=== PATIENT | female | born 1990 | race Caucasian/White ===

== ENCOUNTER 2017-01-29 06:01 | Emergency (ER) | payer MEDICAID ==
[~2017-01-29] VITALS: Ht 157.5 cm; Wt 75.7 kg
[~2017-01-29 06:01] MED LIST: PRENTAB16 PO
[2017-01-29 06:45] VITALS: RESP 18
--- NOTE | 2017-01-29 06:48 | PD ---
HPI Chief Complaint Contractions Date Seen: Jan 29, 2017 Travel History International Travel<30 Days: No Contact w/Intl Traveler<30Days: No History of Present Illness HPI Patient is a 26 year old at 39-2/7 weeks gestation who presents today for contractions. Contractions started around 3:45 this AM and are now occurring every 5-10 minutes. Patient states the contractions have decreased in frequency now. She denies any vaginal bleeding or discharge. No gush or leaking of fluid. Positive movement. care with [facility]. No complications with . History Past Medical History Medical History: Denies Significant Hx Obstetric History Obstetric History Past Surgical History Surgical History: No Previous Surgery Family History Family History: Negative Social History Alcohol Use: No Tobacco Use: No Substance Abuse: No Allergies-Medications (Allergen,Severity, Reaction): Coded Allergies: No Known Allergies (Unverified , 01/22/17) Home Meds Active Scripts Vit W/ Ferrous Fumara ( Complete 14-0.4 mg)1 Tab Tab1 Tab PO DAILY #30 TAB Ref 11 Prov:Cristiano Packer MD R1 06/17/16 Review of Systems Except as stated in HPI: all other systems reviewed are Neg General / Constitutional: No: Fever, Chills Eyes: No: Visual changes HENT: No: Headaches Cardiovascular: No: Chest Pain or Discomfort Respiratory: No: Short of Breath Gastrointestinal: No: Nausea, Abdominal Pain Genitourinary: Pelvic Pain, No: Dysuria, Hematuria, Discharge, Vaginal Bleeding Musculoskeletal: No: Edema Psychiatric: No: Substance Abuse Physical Exam Narrative GENERAL: Well-nourished, well-developed patient. SKIN: Warm and dry. HEAD: Normocephalic and atraumatic. EYES: No scleral icterus. No injection or drainage. ENT: No nasal drainage noted. Mucous membranes pink. Airway patent. NECK: Supple, trachea midline. No JVD. CARDIOVASCULAR: Regular rate and rhythm without murmurs, gallops, or rubs. RESPIRATORY: Breath sounds equal bilaterally. No accessory muscle use. ABDOMEN/GI: Abdomen soft, non-tender, bowel sounds present, no rebound, no guarding Gravid to 39 weeks size GENITOURINARY: External Genitalia: intact and normal in appearance BUS glands: normal Cervix: posterior Dilatation: 3 Effacement: 80 Station: -2 Presentation: vertex Membranes: intact Uterine Contractions: q2-3min FHT's: Category: I Baseline: 122 Reactive: + Variability: moderate Decels: none EXTREMITIES: No cyanosis or edema. BACK: Nontender without obvious deformity. NEUROLOGICAL: Awake and alert. Motor and sensory grossly within normal limits. Normal speech. Data Data Vital Signs Reviewed: Yes MDM Medical Record Reviewed: Yes Narrative Course / MDM 26 year old at 39-2/7 weeks gestation. 1. IUP- Category I tracing, reassuring. 2. Contractions- Consistent contractions on the monitor, will repeat cervical exam in 1 hour to evaluate for active labor. dw Dr. De Luna Addendum: Cervical change to 4cm/80%/-2. Patient no longer feeling contractions, however she continues to have consistent contractions on the monitor and Category I tracing. Because she is a primip, will discharge patient to home. She has a follow-up appointment with [facility] at 11:30. Labor precautions provided. Encouraged to return to ED if she experiences worsening contractions, vaginal bleeding or gush or leaking of fluid. Patient expresses understanding and is agreeable to plan. Diagnosis Diagnosis: Primary Impression: Uterine contractions during Additional Impression: 39 weeks gestation of Disposition: DISCHARGE HOME Condition: Stable Sharee Peguero MD R2 Jan 29, 2017 06:48
[2017-02-13] MEDS ORDERED: CITA10TA4 PO (09:43)
[2017-03-13] MEDS ORDERED: CITA10TA4 PO (09:15)
== END 2017-01-29 08:14 | disposition home or self-care (01) ==
LOC: HOBED 06:01
DX: O47.1 False labor at or after 37 completed weeks of gestation (principal); Z3A.39 39 weeks gestation of pregnancy
CPT/HCPCS: 59025

== ENCOUNTER 2017-01-29 23:23 | Inpatient (IN) | payer MEDICAID ==
[~2017-01-29] VITALS: Ht 157.5 cm; Wt 75.7 kg
[2017-01-30] VITALS (92 sets, daily range): BP systolic 77–132; BP diastolic 29–78; PULSE 76–137; RESP 16–19; TEMP 98.2–98.8; O2SAT 98–100
[2017-01-30] MEDS ORDERED: LACTATED RINGER'S 1000 ML INJ 1,000 ML IV PRN (00:05)
--- NOTE | 2017-01-30 00:13 | HHI.HP ---
History & Physical H&P [facility] OB ED Note (Detail) Patient Name: Shayla Quiñones Unit Number: [id number] Date of : 1990 Patient Status: Registered Emergency Room Attending Doctor: Maddie Hernandez MD HPI HPI Travel History International Travel<30 Days: No Contact w/Intl Traveler<30Days: No Known Affected Area: No History of Present Illness HPI This patient is a 26-year-old 1 para 0 EDC is February 03, 2017 presently at 39 weeks and 3 days she presents with the chief complaint of continued contractions. Patient was seen earlier in the day at which time she was evaluated found to be 3-4 cm dilated contractions were very mild and irregular and she was discharged home patient states that the contractions continued became more regular, no rupture of membranes no vaginal bleeding the baby is active care with Brionna Mejía is course is significant for negative group B strep Presently contractions moderate a 7 on a 10 scale occurring every 5 minutes History (Limited) History Past Medical History Narrative Medical No known drug allergies no major medical problems Obstetric History Obstetric History First Past Surgical History Surgical History: No Previous Surgery Family History Family History: Negative Social History Alcohol Use: No Tobacco Use: No (stopped smoking with ) Substance Abuse: No Allergies-Medications Allergies-Medications (Allergen,Severity, Reaction): Coded Allergies: No Known Allergies (Unverified , 01/29/17) Home Meds Active Scripts Vit W/ Ferrous Fumara ( Complete 14-0.4 mg)1 Tab Tab1 Tab PO DAILY #30 TAB Ref 11 Prov:Cristiano Packer MD R1 06/17/16 ROS Review of Systems Gastrointestinal: Abdominal Pain (contractions every 5 minutes) Physical Exam Physical Exam Narrative GENERAL: Well-nourished, well-developed patient. Alert oriented 3 and cooperative in no acute distress SKIN: Warm and dry. HEAD: Normocephalic and atraumatic. EYES: No scleral icterus. No injection or drainage. Conjunctiva are pink ENT: No nasal drainage noted. Mucous membranes pink. Airway patent. NECK: Supple, trachea midline. No JVD. CARDIOVASCULAR: Regular rate and rhythm without murmurs, gallops, or rubs. RESPIRATORY: Breath sounds equal bilaterally. No accessory muscle use. ABDOMEN/GI: Gravid term estimated weight 7-1/2 pounds Gravid to [-] weeks size term Fundal Height: [-] GENITOURINARY: External Genitalia: intact and normal in appearance BUS glands: [-] Cervix: [-] Midline Dilatation: [-] 4 cm Effacement: [-] 90% effaced Station: [-] -2 station Presentation: [-] Vertex Membranes: [ ruptured] Uterine Contractions: [-] Irregular every 5 minutes FHT's: Category: [-]1 Baseline: [-]140 Reactive: [-]+ Variability: [-] Moderate gfzj-wt-yafz variability Decels: [-]0 EXTREMITIES: No cyanosis or edema. 2+ reflexes NEUROLOGICAL: Awake and alert. Motor and sensory grossly within normal limits. Five out of 5 muscle strength in all muscle groups. Normal speech. Data Data Data Vital Signs Reviewed: Yes (blood pressure 129/71 pulse is 109 she is afebrile) Orders Vital Signs (Adult) .ON ADMISSION (01/30/17 00:04) ^ Labor Status (01/30/17 00:04) Urinalysis - C+S If Indicated (01/30/17 00:04) ^ Hydration (01/30/17 00:04) Admit To Inpatient (01/30/17 ) Code Status (01/30/17 00:05) Vital Signs (Adult) .Per protocol (01/30/17 00:05) Ob (2e) Additional Admit Info (01/30/17 00:07) Heart (01/30/17 00:05) Urinary Catheter Management .ONCE (01/30/17 00:05) Diet Liquid (01/30/17 Breakfast) Lactated Ringer's 1000 Ml Inj (Lr 1000 M (01/30/17 00:05) Lactated Ringer's 1000 Ml Inj (Lr 1000 M (01/30/17 00:05) Sodium Chlorid 0.9% 500 Ml Inj (Ns 500 M (01/30/17 00:15) Sodium Chlor 0.9% 1000 Ml Inj (Ns 1000 M (01/30/17 00:25) Lidocaine 1% Inj (50 Ml) (Xylocaine 1% I (01/30/17 00:15) Citric Acid-Sodium Citrate Liq (Bicitra (01/30/17 00:15) Ondansetron Inj (Zofran Inj) (01/30/17 00:15) Fentanyl Inj (Fentanyl Inj) (01/30/17 00:15) Fentanyl Inj (Fentanyl Inj) (01/30/17 00:15) Complete Blood Count With Diff (01/30/17 00:05) Hold Clot (01/30/17 00:05) Abo/Rh Blood Type (01/30/17 00:05) Resp Oxygen Non Rebreathe Mask (01/30/17 ) ^ Epidural / Intrathecal Infus (01/30/17 00:05) Oxytocin 30 Units-500ml Premix (Pitocin (01/30/17 00:15) Lidocaine 1% Inj (50 Ml) (Xylocaine 1% I (01/30/17 00:15) Light Mineral Oil (Muri-Lube Oil) (01/30/17 00:15) Amnioinfusion (01/30/17 00:05) Labs A positive blood type Group B strep negative MDM MDM Medical Record Reviewed: Yes Interpretation(s) Intrauterine at 39 weeks and 3 days Active labor Group B strep negative Category 1 tracing Plan Admit External monitoring IV fluid hydration CBC type and screen Epidural at patient's request Anticipate vaginal delivery Maddie Hernandez MD Jan 30, 2017 00:13 Maddie Hernandez MD Jan 30, 2017 00:13
[2017-01-30] MEDS ORDERED: CITRIC ACID-SODIUM CITRATE LIQ 30 ML UDC PO SCH ×2 (00:15→13:45)
[2017-01-30] MEDS ORDERED: MINERAL OIL 10 ML VIAL TOPICAL PRN (00:15)
[2017-01-30] MEDS ORDERED: LIDOCAINE HCL 1% 50 ML VIAL I-DERMAL PRN (00:15)
[2017-01-30] MEDS ORDERED: OXYTOCIN 30 UNITS-500ML PREMIX 500 ML IV ONE ×2 (00:15→14:00)
[2017-01-30] MEDS ORDERED: LIDOCAINE HCL 1% 50 ML VIAL INFIL PRN (00:15)
[2017-01-30] MEDS ORDERED: SODIUM CHLORID 0.9% 500 ML INJ 500 ML IV PRN (00:15)
[2017-01-30] MEDS ORDERED: SODIUM CHLOR 0.9% 1000 ML INJ 1,000 ML IV PRN (00:25)
[2017-01-30 00:37] LABS: AUTOMATED NEUTROPHIL # 12.6 TH/MM3 (1.8-7.7); BASOPHIL % 0.1 % (0.0-2.0); HEMATOCRIT 35.7 % (35.0-46.0); HEMO FLAGS DIFF FINAL; LYMPH % 10.4 % (9.0-44.0); LYMPHOCYTE # 1.5 TH/MM3 (1.0-4.8); MEAN CELL VOLUME 85.9 FL (80.0-100.0); MEAN CORPUSCULAR HEMOGLOBIN 28.5 PG (27.0-34.0); MEAN CORPUSCULAR HGB CONC 33.2 % (32.0-36.0); MONO % 5.1 % (0.0-8.0); NEUT % 84.4 % (16.0-70.0); PLATELET COUNT 163 TH/MM3 (150-450); RED BLOOD COUNT 4.15 MIL/MM3 (4.00-5.30); RED CELL DISTRIBUTION WIDTH 13.7 % (11.6-17.2); WHITE BLOOD COUNT 14.9 TH/MM3 (4.0-11.0)
[2017-01-30 00:47] LABS: BACTERIA, URINE RARE /hpf; BLOOD, URINE NEG (NEG); COMMENT (UR) CULT NOT INDICATED; CULTURE IF INDICATED CULT NOT INDICATED; GLUCOSE,URINE NEG (NEG); KETONE, URINE NEG (NEG); NITRITE,URINE NEG (NEG); SQUAMOUS EPITHELIAL CELL URINE 2 /hpf (0-5); URINE COLOR LIGHT-YELLOW (YELLW/STRAW)
[2017-01-30] MEDS: LACTATED RINGER'S 1000 ML INJ 1,000 ML IV SCH ×4 (02:15→10:47)
[2017-01-30] MEDS: ONDANSETRON HCL 4 MG/2 ML VIAL IV PRN ×2 (02:16→18:21)
[2017-01-30] MEDS ORDERED: fentaNYL 2MCG-BUPIV 0.125% INJ 100 ML ONE (04:22)
[2017-01-30] MEDS ORDERED: ePHEDrine/NS 25 MG/5 ML SYR ONE (04:51)
[2017-01-30] MEDS ORDERED: fentaNYL 2MCG-BUPIV 0.125% 100 ML EPIDURAL SCH (06:00)
[2017-01-30] MEDS ORDERED: ePHEDrine/NS 25 MG/5 ML SYR IV PRN (06:00)
[2017-01-30] MEDS ORDERED: DO NOT ADMINISTER ANTICOAGULANTS PRN (06:00)
[2017-01-30] MEDS ORDERED: NO SYSTEM NARCOTICS PRN (06:00)
--- NOTE | 2017-01-30 06:55 | PD.LABORPN ---
Subjective Subjective Patient has gotten an epidural and has rested comfortably during the night. after epidural her bp dropped she received ephedrine x 3 dose to increase the bp Objective Vital Signs Vital Signs Date Time Temp Pulse Resp B/P Pulse Ox O2 Delivery O2 Flow Rate FiO2 01/30/17 06:26 18 01/30/17 06:25 86 01/30/17 06:24 92/52 01/30/17 06:24 87 01/30/17 06:21 84/37 01/30/17 06:21 86 01/30/17 06:20 90 01/30/17 06:16 92 01/30/17 06:16 89/37 01/30/17 06:15 88 01/30/17 06:12 18 01/30/17 06:10 98 01/30/17 06:05 106 01/30/17 06:00 89 01/30/17 06:00 86 95/51 01/30/17 05:48 18 01/30/17 05:25 90 01/30/17 05:21 18 01/30/17 05:20 86 01/30/17 05:20 91 100/57 01/30/17 05:15 93 01/30/17 05:15 94 95/53 01/30/17 05:10 89 01/30/17 05:10 101 101/50 01/30/17 05:06 98.8 01/30/17 05:05 98 01/30/17 05:05 91 98/51 01/30/17 05:03 18 01/30/17 05:00 79 91/54 01/30/17 05:00 100 01/30/17 04:51 137 86/48 01/30/17 04:50 90 01/30/17 04:49 129 84/52 01/30/17 04:49 18 01/30/17 04:45 92 86/42 01/30/17 04:45 91 01/30/17 04:41 137 96/64 01/30/17 04:40 91 01/30/17 04:35 105 01/30/17 04:35 107 117/61 01/30/17 04:31 96 18 114/58 01/30/17 04:30 98 01/30/17 04:22 18 01/30/17 01:36 98.6 01/30/17 00:35 99 18 123/69 01/30/17 00:35 99 18 123/69 Objective Pelvic Exam: Cervix: [-]midline Dilatation: [9-] Effacement: [-] 100% Station: [-] 0 Presentation: [-] vertex Membranes: [ ruptured]scant, clear Uterine Contractions: [-]irregular difficult to strip picker unable to place an IUPC vertex to low FHT's: Category: [-] 1-2 Baseline: [-] 130 Reactive: [-] + accerations up to 170 Variability: [-] mderate Decels: [-] Patient has had an occasional variable however continues to have moderate variability and + accelerations Assessment/Plan Assessment and Plan Labor progression active labor episodes of hypotension related to the epidural Plan: positional change O2 iv fluid hydration anticipate the second stage and subsequent vaginal delivery Maddie Hernandez MD Jan 30, 2017 06:55
--- NOTE | 2017-01-30 06:56 | PD.LABORPN ---
Subjective Subjective Patient resting comfortably with epidural in place. Objective Vital Signs Vital Signs Date Time Temp Pulse Resp B/P Pulse Ox O2 Delivery O2 Flow Rate FiO2 01/30/17 06:26 18 01/30/17 06:25 86 01/30/17 06:24 92/52 01/30/17 06:24 87 01/30/17 06:21 84/37 01/30/17 06:21 86 01/30/17 06:20 90 01/30/17 06:16 92 01/30/17 06:16 89/37 01/30/17 06:15 88 01/30/17 06:12 18 01/30/17 06:10 98 01/30/17 06:05 106 01/30/17 06:00 89 01/30/17 06:00 86 95/51 01/30/17 05:48 18 01/30/17 05:25 90 01/30/17 05:21 18 01/30/17 05:20 86 01/30/17 05:20 91 100/57 01/30/17 05:15 93 01/30/17 05:15 94 95/53 01/30/17 05:10 89 01/30/17 05:10 101 101/50 01/30/17 05:06 98.8 01/30/17 05:05 98 01/30/17 05:05 91 98/51 01/30/17 05:03 18 01/30/17 05:00 79 91/54 01/30/17 05:00 100 01/30/17 04:51 137 86/48 01/30/17 04:50 90 01/30/17 04:49 129 84/52 01/30/17 04:49 18 01/30/17 04:45 92 86/42 01/30/17 04:45 91 01/30/17 04:41 137 96/64 01/30/17 04:40 91 01/30/17 04:35 105 01/30/17 04:35 107 117/61 01/30/17 04:31 96 18 114/58 01/30/17 04:30 98 01/30/17 04:22 18 01/30/17 01:36 98.6 01/30/17 00:35 99 18 123/69 01/30/17 00:35 99 18 123/69 Objective Pelvic Exam: Cervix: midposition Dilatation: 8 Effacement: 100 Station: 0 Presentation: vertex Membranes: ruptured Uterine Contractions: q2-3min FHT's: Category: I Baseline: 140 Reactive: + Variability: moderate Decels: none Assessment/Plan Assessment and Plan 26 year old at 39-3/7 weeks gestation. 1. IUP- Category I tracing, reassuring. 2. Labor progressing with cervical change. 3. Epidural for pain. 4. GBS negative. 5. Anticipate vaginal delivery. dw Dr. Gee, Dr. Miki Lloyd R1, and Concepcion Dunn MS4 Sharee Peguero MD R2 Jan 30, 2017 06:56
--- NOTE | 2017-01-30 08:51 | PD.LABORPN ---
Subjective Subjective Patient resting comfortably in bed with epidural in place. Objective Vital Signs Vital Signs Date Time Temp Pulse Resp B/P Pulse Ox O2 Delivery O2 Flow Rate FiO2 01/30/17 07:55 95 01/30/17 07:50 96 01/30/17 07:45 106 98/54 01/30/17 07:35 98 01/30/17 07:30 95 01/30/17 07:30 17 01/30/17 07:30 99 98/61 01/30/17 07:25 99 01/30/17 07:20 105 01/30/17 07:15 102 114/62 01/30/17 07:15 98.5 01/30/17 07:15 100 01/30/17 07:10 102 01/30/17 07:05 102 01/30/17 07:01 101 119/65 01/30/17 07:00 116 01/30/17 06:57 18 01/30/17 06:55 109 01/30/17 06:50 110 01/30/17 06:45 109 01/30/17 06:45 111 120/63 01/30/17 06:40 104 01/30/17 06:35 100 01/30/17 06:35 125 99/48 01/30/17 06:30 96 91/49 01/30/17 06:30 92 01/30/17 06:26 18 01/30/17 06:25 86 01/30/17 06:24 92/52 01/30/17 06:24 87 01/30/17 06:21 84/37 01/30/17 06:21 86 01/30/17 06:20 90 01/30/17 06:16 92 01/30/17 06:16 89/37 01/30/17 06:15 88 01/30/17 06:12 18 01/30/17 06:10 98 01/30/17 06:05 106 01/30/17 06:00 89 01/30/17 06:00 86 95/51 01/30/17 05:55 82 01/30/17 05:50 85 01/30/17 05:48 18 01/30/17 05:45 89 93/56 01/30/17 05:45 87 01/30/17 05:40 88 01/30/17 05:35 87 01/30/17 05:30 76 01/30/17 05:30 92 96/49 01/30/17 05:25 90 01/30/17 05:21 18 01/30/17 05:20 86 01/30/17 05:20 91 100/57 01/30/17 05:15 93 01/30/17 05:15 94 95/53 01/30/17 05:10 89 01/30/17 05:10 101 101/50 01/30/17 05:06 98.8 01/30/17 05:05 98 01/30/17 05:05 91 98/51 01/30/17 05:03 18 01/30/17 05:00 79 91/54 01/30/17 05:00 100 01/30/17 04:51 137 86/48 01/30/17 04:50 90 01/30/17 04:49 129 84/52 01/30/17 04:49 18 01/30/17 04:45 92 86/42 01/30/17 04:45 91 01/30/17 04:41 137 96/64 01/30/17 04:40 91 01/30/17 04:35 105 01/30/17 04:35 107 117/61 01/30/17 04:31 96 18 114/58 01/30/17 04:30 98 01/30/17 04:22 18 01/30/17 01:36 98.6 Objective Pelvic Exam: Cervix: posterior Dilatation: 10 Effacement: 100 Station: 0 Presentation: vertex Membranes: ruptured Uterine Contractions: q2-3min FHT's: Category: II Baseline: 140 Reactive: + Variability: moderate Decels: intermittent variable decelerations Assessment/Plan Assessment and Plan 26 year old at 39-3/7 weeks gestation. 1. IUP- Category II tracing, IV fluids, position changes, and scalp electrode placed for more accurate heart monitoring. Tracing improved to a Category I tracing after interventions. 2. Labor progressing with cervical change. 3. Epidural for pain. 4. GBS negative. 5. Anticipate vaginal delivery. sdw Dr. Gee, Dr. Miki Lloyd R1, and Concepcion Dunn MS4 Sharee Peguero MD R2 Jan 30, 2017 08:51
--- NOTE | 2017-01-30 09:24 | PD.LABORPN ---
Objective Vital Signs Positional change O2 increase iv fluids bp is low repeated 116/60s presently sitting up monitor closely in the second stage of labor Vital Signs Date Time Temp Pulse Resp B/P Pulse Ox O2 Delivery O2 Flow Rate FiO2 01/30/17 09:00 91 87/42 01/30/17 08:45 87 97/29 01/30/17 08:45 92 01/30/17 08:40 93 01/30/17 08:35 90 01/30/17 08:31 91 78/49 01/30/17 08:30 89 01/30/17 08:25 99 01/30/17 08:20 95 01/30/17 08:15 95 109/76 01/30/17 08:15 91 01/30/17 08:10 93 01/30/17 08:05 95 01/30/17 08:00 93 111/66 01/30/17 08:00 92 01/30/17 07:55 95 01/30/17 07:50 96 01/30/17 07:45 100 01/30/17 07:45 106 98/54 01/30/17 07:35 98 01/30/17 07:30 95 01/30/17 07:30 17 01/30/17 07:30 99 98/61 01/30/17 07:25 99 01/30/17 07:20 105 01/30/17 07:15 102 114/62 01/30/17 07:15 98.5 01/30/17 07:15 100 01/30/17 07:10 102 01/30/17 07:05 102 01/30/17 07:01 101 119/65 01/30/17 07:00 116 01/30/17 06:57 18 01/30/17 06:55 109 01/30/17 06:50 110 01/30/17 06:45 109 01/30/17 06:45 111 120/63 01/30/17 06:40 104 01/30/17 06:35 100 01/30/17 06:35 125 99/48 01/30/17 06:30 96 91/49 01/30/17 06:30 92 01/30/17 06:26 18 01/30/17 06:25 86 01/30/17 06:24 92/52 01/30/17 06:24 87 01/30/17 06:21 84/37 01/30/17 06:21 86 01/30/17 06:20 90 01/30/17 06:16 92 01/30/17 06:16 89/37 01/30/17 06:15 88 01/30/17 06:12 18 01/30/17 06:10 98 01/30/17 06:05 106 01/30/17 06:00 89 01/30/17 06:00 86 95/51 01/30/17 05:55 82 01/30/17 05:50 85 01/30/17 05:48 18 01/30/17 05:45 89 93/56 01/30/17 05:45 87 01/30/17 05:40 88 01/30/17 05:35 87 01/30/17 05:30 76 01/30/17 05:30 92 96/49 01/30/17 05:25 90 01/30/17 05:21 18 01/30/17 05:20 86 01/30/17 05:20 91 100/57 01/30/17 05:15 93 01/30/17 05:15 94 95/53 01/30/17 05:10 89 01/30/17 05:10 101 101/50 01/30/17 05:06 98.8 01/30/17 05:05 98 01/30/17 05:05 91 98/51 01/30/17 05:03 18 01/30/17 05:00 79 91/54 01/30/17 05:00 100 01/30/17 04:51 137 86/48 01/30/17 04:50 90 01/30/17 04:49 129 84/52 01/30/17 04:49 18 01/30/17 04:45 92 86/42 01/30/17 04:45 91 01/30/17 04:41 137 96/64 01/30/17 04:40 91 01/30/17 04:35 105 01/30/17 04:35 107 117/61 01/30/17 04:31 96 18 114/58 01/30/17 04:30 98 01/30/17 04:22 18 01/30/17 01:36 98.6 Objective Pelvic Exam: Cervix: [-] Dilatation: [-] Effacement: [-] Station: [-] Presentation: [-] Membranes: [intact or ruptured] Uterine Contractions: [-] FHT's: Category: [-] Baseline: [-] Reactive: [-] Variability: [-] Decels: [-] Maddie Hernandez MD Jan 30, 2017 09:24
--- NOTE | 2017-01-30 10:07 | PD.LABORPN ---
Subjective Subjective Patient is comfortable feeling pressure when she has a contractions Objective Vital Signs bp has improved IUPC has been placed amnioinfusion going IUPC/FSE in place baseline 140 moderate BTB variability + accelerations with the acoustic stimulator Vital Signs Date Time Temp Pulse Resp B/P Pulse Ox O2 Delivery O2 Flow Rate FiO2 01/30/17 09:15 95 116/64 01/30/17 09:14 88 106/64 01/30/17 09:00 91 87/42 01/30/17 08:45 87 97/29 01/30/17 08:45 92 01/30/17 08:40 93 01/30/17 08:35 90 01/30/17 08:31 91 78/49 01/30/17 08:30 89 01/30/17 08:25 99 01/30/17 08:20 95 01/30/17 08:15 95 109/76 01/30/17 08:15 91 01/30/17 08:10 93 01/30/17 08:05 95 01/30/17 08:00 93 111/66 01/30/17 08:00 92 01/30/17 07:55 95 01/30/17 07:50 96 01/30/17 07:45 100 01/30/17 07:45 106 98/54 01/30/17 07:35 98 01/30/17 07:30 95 01/30/17 07:30 17 01/30/17 07:30 99 98/61 01/30/17 07:25 99 01/30/17 07:20 105 01/30/17 07:15 102 114/62 01/30/17 07:15 98.5 01/30/17 07:15 100 01/30/17 07:10 102 01/30/17 07:05 102 01/30/17 07:01 101 119/65 01/30/17 07:00 116 01/30/17 06:57 18 01/30/17 06:55 109 01/30/17 06:50 110 01/30/17 06:45 109 01/30/17 06:45 111 120/63 01/30/17 06:40 104 01/30/17 06:35 100 01/30/17 06:35 125 99/48 01/30/17 06:30 96 91/49 01/30/17 06:30 92 01/30/17 06:26 18 01/30/17 06:25 86 01/30/17 06:24 92/52 01/30/17 06:24 87 01/30/17 06:21 84/37 01/30/17 06:21 86 01/30/17 06:20 90 01/30/17 06:16 92 01/30/17 06:16 89/37 01/30/17 06:15 88 01/30/17 06:12 18 01/30/17 06:10 98 01/30/17 06:05 106 01/30/17 06:00 89 01/30/17 06:00 86 95/51 01/30/17 05:55 82 01/30/17 05:50 85 01/30/17 05:48 18 01/30/17 05:45 89 93/56 01/30/17 05:45 87 01/30/17 05:40 88 01/30/17 05:35 87 01/30/17 05:30 76 01/30/17 05:30 92 96/49 01/30/17 05:25 90 01/30/17 05:21 18 01/30/17 05:20 86 01/30/17 05:20 91 100/57 01/30/17 05:15 93 01/30/17 05:15 94 95/53 01/30/17 05:10 89 01/30/17 05:10 101 101/50 01/30/17 05:06 98.8 01/30/17 05:05 98 01/30/17 05:05 91 98/51 01/30/17 05:03 18 01/30/17 05:00 79 91/54 01/30/17 05:00 100 01/30/17 04:51 137 86/48 01/30/17 04:50 90 01/30/17 04:49 129 84/52 01/30/17 04:49 18 01/30/17 04:45 92 86/42 01/30/17 04:45 91 01/30/17 04:41 137 96/64 01/30/17 04:40 91 01/30/17 04:35 105 01/30/17 04:35 107 117/61 01/30/17 04:31 96 18 114/58 01/30/17 04:30 98 01/30/17 04:22 18 Objective Pelvic Exam: Cervix: [-] Dilatation: [-] Effacement: [-] Station: [-] Presentation: [-] Membranes: [intact or ruptured] Uterine Contractions: [-] FHT's: Category: [-] Baseline: [-] Reactive: [-] Variability: [-] Decels: [-] Assessment/Plan Assessment and Plan second stage of labor occasional variable decelerations improved with amnioinfusion Plan: shift changing patient signed out to the oncoming MD tracing reviewed agree with close monitoring in the second stage and continued labor Maddie Hernandez MD Jan 30, 2017 10:07
[2017-01-30] MEDS ORDERED: OXYTOCIN 30 UNITS-500ML PREMIX 500 ML IV SCH (10:45)
--- NOTE | 2017-01-30 10:45 | PD.LABORPN ---
Subjective Subjective Patient evaluated at bedside after deceleration of approx 1 min to 60bpm after practice push with the nurse. Resolved after pushing. Patient feeling well. Amnioinfusion going. CTX q2min but inadequate MVUs. Cervix re-examined by Dr. De Luna at bedside and still at 10/100%/0, suggesting ineffective ctx pattern. Decision made to start Pitocin 2-2-30 to help with descent. No pushing. Continue other interventions (IUPC, FSE, amnioinfusion). Continue maternal interventions for decelerations. Continue epidural. If response to Pitocin not optimal, will stop Pitocin. Cat II tracing at this time, will monitor. Discussion of risks, benefits, and indications for CS discussed in detail at bedside if indicated. SDW Dr. De Luna Objective Vital Signs Vital Signs Date Time Temp Pulse Resp B/P Pulse Ox O2 Delivery O2 Flow Rate FiO2 01/30/17 09:15 95 116/64 01/30/17 09:14 88 106/64 01/30/17 09:00 91 87/42 01/30/17 08:45 87 97/29 01/30/17 08:45 92 01/30/17 08:40 93 01/30/17 08:35 90 01/30/17 08:31 91 78/49 01/30/17 08:30 89 01/30/17 08:25 99 01/30/17 08:20 95 01/30/17 08:15 95 109/76 01/30/17 08:15 91 01/30/17 08:10 93 01/30/17 08:05 95 01/30/17 08:00 93 111/66 01/30/17 08:00 92 01/30/17 07:55 95 01/30/17 07:50 96 01/30/17 07:45 100 01/30/17 07:45 106 98/54 01/30/17 07:35 98 01/30/17 07:30 95 01/30/17 07:30 17 01/30/17 07:30 99 98/61 01/30/17 07:25 99 01/30/17 07:20 105 01/30/17 07:15 102 114/62 01/30/17 07:15 98.5 01/30/17 07:15 100 01/30/17 07:10 102 01/30/17 07:05 102 01/30/17 07:01 101 119/65 01/30/17 07:00 116 01/30/17 06:57 18 01/30/17 06:55 109 01/30/17 06:50 110 01/30/17 06:45 109 01/30/17 06:45 111 120/63 01/30/17 06:40 104 01/30/17 06:35 100 01/30/17 06:35 125 99/48 01/30/17 06:30 96 91/49 01/30/17 06:30 92 01/30/17 06:26 18 01/30/17 06:25 86 01/30/17 06:24 92/52 01/30/17 06:24 87 01/30/17 06:21 84/37 01/30/17 06:21 86 01/30/17 06:20 90 01/30/17 06:16 92 01/30/17 06:16 89/37 01/30/17 06:15 88 01/30/17 06:12 18 01/30/17 06:10 98 01/30/17 06:05 106 01/30/17 06:00 89 01/30/17 06:00 86 95/51 01/30/17 05:55 82 01/30/17 05:50 85 01/30/17 05:48 18 01/30/17 05:45 89 93/56 01/30/17 05:45 87 01/30/17 05:40 88 01/30/17 05:35 87 01/30/17 05:30 76 01/30/17 05:30 92 96/49 01/30/17 05:25 90 01/30/17 05:21 18 01/30/17 05:20 86 01/30/17 05:20 91 100/57 01/30/17 05:15 93 01/30/17 05:15 94 95/53 01/30/17 05:10 89 01/30/17 05:10 101 101/50 01/30/17 05:06 98.8 01/30/17 05:05 98 01/30/17 05:05 91 98/51 01/30/17 05:03 18 01/30/17 05:00 79 91/54 01/30/17 05:00 100 01/30/17 04:51 137 86/48 01/30/17 04:50 90 01/30/17 04:49 129 84/52 01/30/17 04:49 18 01/30/17 04:45 92 86/42 01/30/17 04:45 91 01/30/17 04:41 137 96/64 01/30/17 04:40 91 01/30/17 04:35 105 01/30/17 04:35 107 117/61 01/30/17 04:31 96 18 114/58 01/30/17 04:30 98 01/30/17 04:22 18 Objective Pelvic Exam: Cervix: [-] Dilatation: [-] Effacement: [-] Station: [-] Presentation: [-] Membranes: [intact or ruptured] Uterine Contractions: [-] FHT's: Category: [-] Baseline: [-] Reactive: [-] Variability: [-] Decels: [-] Aneta Lloyd MD R1 Jan 30, 2017 10:45
[2017-01-30] MEDS ORDERED: LACTATED RINGER'S 1000 ML INJ 1,000 ML IV ONE (12:11)
[2017-01-30] MEDS ORDERED: OXYTOCIN 10 UNIT/ML AMP ONE (12:13)
--- NOTE | 2017-01-30 12:16 | PD.LABORPN ---
Subjective Subjective Patient feeling significant pressure. Epidural in place. Objective Vital Signs Vital Signs Date Time Temp Pulse Resp B/P Pulse Ox O2 Delivery O2 Flow Rate FiO2 01/30/17 12:01 83 114/55 01/30/17 11:46 116 120/77 01/30/17 11:31 76 126/62 01/30/17 11:30 19 01/30/17 11:16 85 132/68 01/30/17 11:03 102 113/64 01/30/17 11:00 94 77/46 01/30/17 11:00 98.7 01/30/17 11:00 16 01/30/17 10:46 95 99/53 01/30/17 10:30 93 111/65 01/30/17 10:30 17 01/30/17 10:16 80 114/52 01/30/17 10:00 88 113/65 01/30/17 09:45 89 113/55 01/30/17 09:30 18 01/30/17 09:30 87 98/54 01/30/17 09:15 95 116/64 01/30/17 09:14 88 106/64 01/30/17 09:00 91 87/42 01/30/17 08:45 87 97/29 01/30/17 08:45 92 01/30/17 08:40 93 01/30/17 08:35 90 01/30/17 08:31 91 78/49 01/30/17 08:30 89 01/30/17 08:30 18 01/30/17 08:25 99 01/30/17 08:20 95 01/30/17 08:15 95 109/76 01/30/17 08:15 91 01/30/17 08:10 93 01/30/17 08:05 95 01/30/17 08:00 93 111/66 01/30/17 08:00 92 01/30/17 07:55 95 01/30/17 07:50 96 01/30/17 07:45 100 01/30/17 07:45 106 98/54 01/30/17 07:35 98 01/30/17 07:30 95 01/30/17 07:30 17 01/30/17 07:30 99 98/61 01/30/17 07:25 99 01/30/17 07:20 105 01/30/17 07:15 102 114/62 01/30/17 07:15 98.5 01/30/17 07:15 100 01/30/17 07:10 102 01/30/17 07:05 102 01/30/17 07:01 101 119/65 01/30/17 07:00 116 01/30/17 06:57 18 01/30/17 06:55 109 01/30/17 06:50 110 01/30/17 06:45 109 01/30/17 06:45 111 120/63 01/30/17 06:40 104 01/30/17 06:35 100 01/30/17 06:35 125 99/48 01/30/17 06:30 96 91/49 01/30/17 06:30 92 01/30/17 06:26 18 01/30/17 06:25 86 01/30/17 06:24 92/52 01/30/17 06:24 87 01/30/17 06:21 84/37 01/30/17 06:21 86 01/30/17 06:20 90 01/30/17 06:16 92 01/30/17 06:16 89/37 01/30/17 06:15 88 01/30/17 06:12 18 01/30/17 06:10 98 01/30/17 06:05 106 01/30/17 06:00 89 01/30/17 06:00 86 95/51 01/30/17 05:55 82 01/30/17 05:50 85 01/30/17 05:48 18 01/30/17 05:45 89 93/56 01/30/17 05:45 87 01/30/17 05:40 88 01/30/17 05:35 87 01/30/17 05:30 76 01/30/17 05:30 92 96/49 01/30/17 05:25 90 01/30/17 05:21 18 01/30/17 05:20 86 01/30/17 05:20 91 100/57 01/30/17 05:15 93 01/30/17 05:15 94 95/53 01/30/17 05:10 89 01/30/17 05:10 101 101/50 01/30/17 05:06 98.8 01/30/17 05:05 98 01/30/17 05:05 91 98/51 01/30/17 05:03 18 01/30/17 05:00 79 91/54 01/30/17 05:00 100 01/30/17 04:51 137 86/48 01/30/17 04:50 90 01/30/17 04:49 129 84/52 01/30/17 04:49 18 01/30/17 04:45 92 86/42 01/30/17 04:45 91 01/30/17 04:41 137 96/64 01/30/17 04:40 91 01/30/17 04:35 105 01/30/17 04:35 107 117/61 01/30/17 04:31 96 18 114/58 01/30/17 04:30 98 01/30/17 04:22 18 Objective Pelvic Exam: Cervix: midposition Dilatation: 10 Effacement: 100 Station: 0 Presentation: vertex Membranes: ruptured Uterine Contractions: q1-2min FHT's: Category: III Baseline: 150 Reactive: + Variability: moderate Decels: recurrent late decelerations Assessment/Plan Assessment and Plan 26 year old at 39-3/7 weeks gestation. 1. IUP- Category III tracing for recurrent late decelerations with maintained variability and reactivity- indicated 2. No change in station since Pitocin was started 1 hour ago 3. Epidural in place. 4. GBS negative. 5. for non-reassuring heart tracing. ousmanew Dr. De Luna, Dr. Miki Lloyd R1, and Concepcion Dunn MS4 Sharee Peguero MD R2 Jan 30, 2017 12:16
[2017-01-30] MEDS ORDERED: ceFAZolin INJ 1,000 MG VIAL ONE (12:17)
[2017-01-30] MEDS ORDERED: LACTATED RINGER'S 1000 ML INJ 1,000 ML IV SCH ×2 (12:41→18:50)
[2017-01-30] MEDS ORDERED: DICLOFENAC SODIUM 37.5 MG/ML VIAL IV PUSH ONE (12:52)
[2017-01-30] MEDS ORDERED: ceFAZolin 2 GM PREMIX 50 ML IV SCH (13:15)
[2017-01-30] MEDS ORDERED: MORPHINE SULFATE PF 5 MG/10 ML VIAL ONE (13:58)
[2017-01-30] MEDS ORDERED: SODIUM CHLORIDE 0.9% FLUSH 10 ML FLUSH IV FLUSH PRN (14:00)
[2017-01-30] MEDS ORDERED: oxyCODONE/ACETAMINOPHEN 5 MG/325 MG TAB PO PRN ×2 (14:00)
[2017-01-30] MEDS ORDERED: ZOLPIDEM TARTRATE 5 MG TAB PO PRN (14:00)
[2017-01-30] MEDS ORDERED: ONDANSETRON HCL 4 MG/2 ML VIAL IV PUSH PRN (14:00)
[2017-01-30] MEDS ORDERED: ACETAMINOPHEN 325 MG TAB PO PRN (14:00)
[2017-01-30] MEDS ORDERED: LACTATED RINGER'S 1,000 ML BAG IV ONE (14:08)
[2017-01-30] MEDS ORDERED: SODIUM BICARBONATE 8.4% INJ 50 MEQ/50 ML SYR ONE (14:08)
[2017-01-30] MEDS ORDERED: LIDOCAINE HCL 1% 20 ML VIAL OTHER ONE (14:08)
[2017-01-30] MEDS ORDERED: EPIDURAL-NO SYSTEMIC NARCOTICS PRN (16:00)
[2017-01-30] MEDS ORDERED: EPIDURAL-NALOXONE HCL 0.4 MG/ML AMP IV PRN (16:00)
[2017-01-30] MEDS ORDERED: EPIDURAL-DIPHENHYDRAMINE HCL 50 MG CAP PO PRN (16:00)
[2017-01-30] MEDS ORDERED: EPIDURAL-DO NOT ADMINISTER ANTICOAGULANTS PRN (16:00)
[2017-01-30] MEDS ORDERED: EPIDURAL-DIPHENHYDRAMINE HCL 50 MG/ML VIAL IV PUSH PRN (16:00)
[2017-01-30] MEDS: DICLOFENAC SODIUM 37.5 MG/ML VIAL IV PUSH SCH (18:22)
[2017-01-30] MEDS ORDERED: SODIUM CHLORIDE 0.9% FLUSH 10 ML FLUSH IV FLUSH SCH (21:00)
[2017-01-31] MEDS ORDERED: OXYTOCIN 30 UNITS-500ML PREMIX 500 ML IV PRN
[2017-01-31] MEDS: DICLOFENAC SODIUM 37.5 MG/ML VIAL IV PUSH SCH ×2 (00:50→06:29)
[2017-01-31 03:00] VITALS: BP 109/61; PULSE 108; RESP 16; TEMP 98.3
[2017-01-31 05:18] LABS: AUTOMATED NEUTROPHIL # 16.9 TH/MM3 (1.8-7.7); BASOPHIL % 0.1 % (0.0-2.0); EOSINOPHIL % 0.1 % (0.0-4.0); HEMATOCRIT 28.1 % (35.0-46.0); HEMO FLAGS DIFF FINAL; LYMPH % 8.9 % (9.0-44.0); LYMPHOCYTE # 1.8 TH/MM3 (1.0-4.8); MEAN CELL VOLUME 85.1 FL (80.0-100.0); MEAN CORPUSCULAR HEMOGLOBIN 28.8 PG (27.0-34.0); MEAN CORPUSCULAR HGB CONC 33.9 % (32.0-36.0); MONO % 4.7 % (0.0-8.0); NEUT % 86.2 % (16.0-70.0); PLATELET COUNT 151 TH/MM3 (150-450); RED CELL DISTRIBUTION WIDTH 13.6 % (11.6-17.2); WHITE BLOOD COUNT 19.7 TH/MM3 (4.0-11.0)
[2017-01-31 07:10] VITALS: BP 109/60; PULSE 102; RESP 16; TEMP 98.1
--- NOTE | 2017-01-31 08:12 | HHI.OB ---
Subjective Remarks No acute issues overnight. Vitals are stable, patient remains afebrile. She is mildly sore this morning and continues to have moderate vaginal bleeding. She is breast feeding and bonding well with her . She was been unable to independently void overnight and had to be straight cathed. She successfully voiding this morning. She denies any shortness of breath, leg pain, fever, chills, nausea or vomiting. Objective Vitals/I&O Vital Signs Date Time Temp Pulse Resp B/P Pulse Ox O2 Delivery O2 Flow Rate FiO2 01/31/17 03:00 98.3 108 16 109/61 01/30/17 19:24 98.2 102 18 121/61 01/30/17 15:39 98.4 96 18 115/78 01/30/17 14:45 98.3 01/30/17 14:44 98 18 110/57 98 01/30/17 14:30 100 18 109/60 100 01/30/17 14:15 98 18 112/62 100 01/30/17 14:00 18 100 01/30/17 14:00 97 109/58 01/30/17 13:56 98.4 01/30/17 12:01 83 114/55 01/30/17 11:46 116 120/77 01/30/17 11:31 76 126/62 01/30/17 11:30 19 01/30/17 11:16 85 132/68 01/30/17 11:03 102 113/64 01/30/17 11:00 94 77/46 01/30/17 11:00 98.7 01/30/17 11:00 16 01/30/17 10:46 95 99/53 01/30/17 10:30 93 111/65 01/30/17 10:30 17 01/30/17 10:16 80 114/52 01/30/17 10:00 88 113/65 01/30/17 09:45 89 113/55 01/30/17 09:30 18 01/30/17 09:30 87 98/54 01/30/17 09:15 95 116/64 01/30/17 09:14 88 106/64 01/30/17 09:00 91 87/42 01/30/17 08:45 87 97/29 01/30/17 08:45 92 01/30/17 08:40 93 01/30/17 08:35 90 01/30/17 08:31 91 78/49 01/30/17 08:30 89 01/30/17 08:30 18 01/30/17 08:25 99 01/30/17 08:20 95 01/30/17 08:15 95 109/76 01/30/17 08:15 91 Result Diagram: 01/31/17 0457 Objective Remarks GENERAL: Well-nourished, well-developed patient. CARDIOVASCULAR: Regular rate and rhythm without murmurs, gallops, or rubs. RESPIRATORY: Breath sounds equal bilaterally. No accessory muscle use. ABDOMEN/GI: Abdomen soft, non-tender, bowel sounds present. Incision: Clean, dry and intact. Fundus: Firm, non-tender at umbilicus. GENITOURINARY: Light to moderate bleeding. EXTREMITIES: No cyanosis or edema, non-tender, without signs of DVT. Medications and IVs Current Medications Medications (Trade) Dose Ordered Sig/Brayan Route Start Time Stop Time Status Last Admin Lactated Ringer's 1,000 ml @ 125 mls/hr Q8H IV 01/30/17 00:05 01/30/17 10:47 Lactated Ringer's 1,000 ml @ 3,000 mls/hr Q20M PRN IV 01/30/17 00:05 01/30/17 10:48 Sodium Chloride 500 ml @ 1,000 mls/hr ONCE PRN IV 01/30/17 00:15 02/06/17 00:14 (NS 1000 ml Inj) 1,000 ml @ 100 mls/hr Q10H PRN IV 01/30/17 00:25 01/30/17 10:49 (Zofran Inj) 4 mg Q6H PRN IV 01/30/17 00:15 01/30/17 18:21 Mineral Oil 10 ml 10 ml UNSCH PRN TOPICAL 01/30/17 00:15 Fentanyl/ Bupivacaine HCl 100 ml @ 0 mls/hr TITRATE EPIDURAL 01/30/17 06:00 Oxytocin 500 ml @ 0 mls/hr TITRATE IV 01/30/17 10:45 01/30/17 10:50 Lactated Ringer's 1,000 ml @ 150 mls/hr Q6H40M IV 01/30/17 12:41 (Lr 1000 ml Inj) 1,000 ml @ 100 mls/hr Q10H IV 01/30/17 18:50 01/31/17 14:49 (NS Flush) 2 ml BID IV FLUSH 01/30/17 21:00 (NS Flush) 2 ml UNSCH PRN IV FLUSH 01/30/17 14:00 (Mylicon Chew) 80 mg QID PRN PO 01/30/17 14:00 (Tylenol) 650 mg Q6H PRN PO 01/30/17 14:00 (Motrin) 600 mg Q6H PRN PO 01/30/17 14:00 (Percocet 5-325 Mg) 1 tab Q4H PRN PO 01/30/17 14:00 (Percocet 5-325 Mg) 2 tab Q4H PRN PO 01/30/17 14:00 ([place]amanna-Colace) 2 tab Q12H PRN PO 01/30/17 14:00 (Ambien) 5 mg HS PRN PO 01/30/17 14:00 (M-M-R Ii Inj) 0.5 ml ONCE ONCE SQ 01/31/17 16:00 01/31/17 16:01 (Boostrix Inj) 0.5 ml ONCE ONCE IM 01/31/17 16:00 01/31/17 16:01 (Zofran Inj) 4 mg Q6H PRN IV PUSH 01/30/17 14:00 Miscellaneous Information NO SYSTEMIC NARCOTICS TO BE GIVEN FO... UNSCH PRN .XX 01/30/17 16:00 01/31/17 15:59 (Narcan Inj) 0.4 mg UNSCH PRN IV 01/30/17 16:00 01/31/17 15:59 (Benadryl Inj) 25 mg Q6H PRN IV PUSH 01/30/17 16:00 01/31/17 15:59 (Benadryl) 50 mg Q6H PRN PO 01/30/17 16:00 01/31/17 15:59 Miscellaneous Information ALL NURSING DEPARTMENTS UNSCH PRN .XX 01/30/17 16:00 01/31/17 15:59 Assessment/Plan Assessment and Plan 26 yo POD 1 s/p for non-reassuring heart tracing and failure to progress. - Continue Motrin/[place] PRN pain - Pelvic rest x 6 weeks - Follow-up in 1 week for incision check - Contraception: patient declines contraceptives dw Dr. De Luna and Dr. Miki Lloyd R1 Sharee Peguero MD R2 Jan 31, 2017 08:12
[2017-01-31] MEDS ORDERED: NALOXONE HCL 0.4 MG/ML AMP IV PRN (08:30)
[2017-01-31] MEDS: ACETAMINOPHEN/HYDROcodone 325 MG/10 MG TAB PO PRN ×3 (09:41→20:21)
[2017-01-31] MEDS: DOCUSATE SODIUM 50 MG/SENNA 8.6 MG TAB PO PRN ×2 (09:41→20:16)
[2017-01-31] MEDS: SIMETHICONE 80 MG CHEWABLE TAB PO PRN ×2 (09:41→20:16)
[2017-01-31] MEDS ORDERED: ACETAMINOPHEN/HYDROcodone 325 MG/5 MG TAB PO PRN (10:00)
[2017-01-31 14:00] VITALS: BP 114/73; PULSE 102; RESP 18; TEMP 98.7
[2017-01-31] MEDS: IBUPROFEN 600 MG TAB PO PRN ×2 (14:00→20:16)
[2017-01-31] MEDS ORDERED: DIPHTH/TETANUS/ACEL PERTUSSIS (BOOSTER) 0.5 ML VIAL/PFS IM ONE (16:00)
[2017-01-31] MEDS ORDERED: MEASLES, MUMPS, RUBELLA VACCINE 0.5 ML VIAL SQ ONE (16:00)
[2017-01-31 20:40] VITALS: BP 128/67; PULSE 107; RESP 20
--- NOTE | 2017-01-31 20:58 | MP ---
cc: ALTHEA DE LUNA MD DATE OF SURGERY: 01/30/2017. PREOPERATIVE DIAGNOSIS: Failure to progress and non-reassuring heart rate tracing at 39 weeks. POSTOPERATIVE DIAGNOSIS: Failure to progress and non-reassuring heart rate tracing at 39 weeks. OPERATION: Low transverse section. SURGEON: Althea De Luna MD. EX CHEF: Dr. Peguero, [facility]. ANESTHESIA: Epidural. PREOPERATIVE NOTE: The patient is a 26-year-old white female 1, para 0 at 39-1/2 weeks who presented in labor. She was noted to be 3 to 4 cm dilated on admission. She progressed in a normal fashion through the first stage of labor, entered the second stage; however, when she would push, the baby had very large, deep, variable decelerations and then began having repetitive late decelerations with contractions. The variability was always very good; however, the baby was not tolerating the second stage. Also the baby's presenting part, the head, was pretty much arrested at 0 station after more than one hour of Pitocin in the second stage. It was felt the baby was not tolerating labor and had a non-reassuring heart rate tracing as well as failure to progress and was taken to surgery. DESCRIPTION OF THE PROCEDURE IN DETAIL: The patient was taken to the operating room and placed supine position on the operating table. With adequate epidural anesthesia administered, she was prepped and draped for abdominal surgery. A Pfannenstiel incision was made in the lower abdomen and carried to the fascia sharply. The fascia was dissected off the rectus muscle and the rectus was split in the midline. The peritoneal cavity was entered sharply in the midline. The incision was extended superiorly and inferiorly. The uterine incision was then stretched open. A bladder blade was placed in the lower incision. The visceral peritoneum was reflected off the lower uterine segment and placed on the bladder blade. A transverse hysterotomy was made and extended bluntly bilaterally. Clear fluid noted at that time. A baby was delivered from a vertex presentation at 12:57 p.m., a male infant, weight 2920 grams with Apgars of 8 and 9. There were no complications of delivery. There was a nuchal cord that was reduced easily. The baby was handed to waiting nursery staff. The cord blood obtained. Placenta was manually extracted. The uterus was exteriorized and the hysterotomy closed with a running layer of #0 Chromic followed by an imbricating suture of the same. Hemostasis was achieved with several [id number] stick ties on the incision line. The uterus was elevated and blood suctioned from the cul-de-sac and gutters and the uterus was replaced in the peritoneal cavity. The parietal peritoneum was closed in a running layer of 2-0 Vicryl. The rectus muscle was reapproximated with stick ties of #0 Vicryl. The fascia was then closed in a running layer of #0 Vicryl. Subcutaneous tissue was reapproximated in a running layer of 3-0 plain gut. Skin closed with subcuticular stitch of 3-0 Monocryl. A pressure dressing was applied. Estimated blood loss was 500 cc. There were no complications. Sponge, needle counts correct times two. The patient was taken to the recovery room in stable condition. MD AKHIL Walters/BHUMIKA /2:02 PM /8:51 PM
[2017-01-31 21:00] VITALS: TEMP 99.9
[2017-02-01] MEDS: ACETAMINOPHEN/HYDROcodone 325 MG/10 MG TAB PO PRN ×2 (03:14→09:13)
[2017-02-01] MEDS: IBUPROFEN 600 MG TAB PO PRN ×2 (03:14→09:13)
[2017-02-01 04:00] VITALS: TEMP 99.2
--- NOTE | 2017-02-01 05:52 | HHI.OB ---
Subjective Remarks No acute issues overnight. Vitals are stable, patient remains afebrile. Pain is well-controlled with Percocet and ibuprofen. Vaginal bleeding is decreasing. She denies any chest pain, shortness of breath, or leg pain. She is bonding well with and breast-feeding. Objective Vitals/I&O Vital Signs Date Time Temp Pulse Resp B/P Pulse Ox O2 Delivery O2 Flow Rate FiO2 02/01/17 04:00 99.2 01/31/17 21:00 99.9 01/31/17 20:40 128/67 01/31/17 20:40 107 20 01/31/17 14:00 98.7 102 18 114/73 01/31/17 07:10 109/60 01/31/17 07:10 98.1 102 16 Result Diagram: 01/31/17 0457 Objective Remarks GENERAL: Well-nourished, well-developed patient. CARDIOVASCULAR: Regular rate and rhythm without murmurs, gallops, or rubs. RESPIRATORY: Breath sounds equal bilaterally. No accessory muscle use. ABDOMEN/GI: Abdomen soft, non-tender, bowel sounds present. Incision: Clean, dry and intact. Fundus: Firm, non-tender at umbilicus. GENITOURINARY: Light to moderate bleeding. EXTREMITIES: No cyanosis or edema, non-tender, without signs of DVT. Medications and IVs Current Medications Medications (Trade) Dose Ordered Sig/Brayan Route Start Time Stop Time Status Last Admin Lactated Ringer's 1,000 ml @ 125 mls/hr Q8H IV 01/30/17 00:05 01/30/17 10:47 Lactated Ringer's 1,000 ml @ 3,000 mls/hr Q20M PRN IV 01/30/17 00:05 01/30/17 10:48 Sodium Chloride 500 ml @ 1,000 mls/hr ONCE PRN IV 01/30/17 00:15 02/06/17 00:14 (NS 1000 ml Inj) 1,000 ml @ 100 mls/hr Q10H PRN IV 01/30/17 00:25 01/30/17 10:49 (Zofran Inj) 4 mg Q6H PRN IV 01/30/17 00:15 01/30/17 18:21 Mineral Oil 10 ml 10 ml UNSCH PRN TOPICAL 01/30/17 00:15 Fentanyl/ Bupivacaine HCl 100 ml @ 0 mls/hr TITRATE EPIDURAL 01/30/17 06:00 Oxytocin 500 ml @ 0 mls/hr TITRATE IV 01/30/17 10:45 01/30/17 10:50 (Lr 1000 ml Inj) 1,000 ml @ 150 mls/hr Q6H40M IV 01/30/17 12:41 (NS Flush) 2 ml BID IV FLUSH 01/30/17 21:00 (NS Flush) 2 ml UNSCH PRN IV FLUSH 01/30/17 14:00 (Mylicon Chew) 80 mg QID PRN PO 01/30/17 14:00 01/31/17 20:16 (Tylenol) 650 mg Q6H PRN PO 01/30/17 14:00 (Motrin) 600 mg Q6H PRN PO 01/30/17 14:00 02/01/17 03:14 (Tamanna-Colace) 2 tab Q12H PRN PO 01/30/17 14:00 01/31/17 20:16 (Ambien) 5 mg HS PRN PO 01/30/17 14:00 (Zofran Inj) 4 mg Q6H PRN IV PUSH 01/30/17 14:00 ([place] 5-325 Mg) 1 tab Q4H PRN PO 01/31/17 10:00 ([place] 10-325 Mg) 1 tab Q4H PRN PO 01/31/17 10:00 02/01/17 03:14 (Narcan Inj) 0.4 mg UNSCH PRN IV 01/31/17 08:30 Assessment/Plan Assessment and Plan 26 yo POD 2 s/p for non-reassuring heart tracing and failure to progress. - Continue Motrin/[place] PRN pain - Hgb stable at 9.5. - Pelvic rest x 6 weeks - Follow-up in 1 week for incision check - Contraception: patient declines contraceptives, she would like to resume family planning as this has worked for her in the past - Anticipate discharge home today or tomorrow. dw Sharee Randhawa MD R2 Feb 01, 2017 05:52
[2017-02-01] MEDS ORDERED: HYDR-3516 PO (06:27)
[2017-02-01] MEDS ORDERED: IBUP-232 PO (06:27)
[2017-02-01] MEDS ORDERED: PERI8.6T PO (06:27)
--- NOTE | 2017-02-01 06:28 | HHI.DCPOC ---
Discharge Care Plan Diagnosis: (1) Delivery by section of full-term infant Report Symptoms to Your Doctor -Temperature above 100.5 degrees -Redness, of incision or excessive or foul smelling drainage -Unusual pain or calf pain -Increased vaginal bleeding -Painful or difficulty urinating -Feelings of extreme sadness or anxiety after 2 weeks Goals to Promote Your Health * To prevent worsening of your condition and complications * To maintain your health at the optimal level Directions to Meet Your Goals Take your medications as prescribed Follow your dietary instruction Follow activity as directed Ensure plenty of rest for recovery Drink fluids for hydration Keep your appointments as scheduled Take your immunizations and boosters as scheduled If your symptoms worsen call your PCP, if no PCP go to Urgent Care Center or Emergency Room Smoking is Dangerous to Your Health. Avoid second hand smoke Call the 24-hour crisis hotline for domestic abuse at Sharee Peguero MD R2 Feb 01, 2017 06:28
[2017-02-01 07:55] VITALS: BP 107/65; PULSE 103; RESP 18; TEMP 98.7
[2017-02-01] MEDS: DOCUSATE SODIUM 50 MG/SENNA 8.6 MG TAB PO PRN (09:12)
== END 2017-02-01 16:05 | disposition home or self-care (01) | DRG 766 ==
LOC: HOBED 23:23 → H2EB 01-30 00:15 → H1EA 01-30 15:30
PROVIDERS: ADMIT Obstetrics & Gynecology; ATTEND Obstetrics & Gynecology
PROC: 10D00Z1 Extraction of Products of Conception, Low, Open Approach (ICD-10-PCS; principal; 2017-01-31)
DX: O76 Abnormality in fetal heart rate and rhythm complicating labor and delivery (principal); I95.89 Other hypotension; O75.89 Other specified complications of labor and delivery; O62.2 Other uterine inertia; O69.81X0 Labor and delivery complicated by cord around neck, without compression, not applicable or unspecified; Z37.0 Single live birth; Z3A.39 39 weeks gestation of pregnancy
CPT/HCPCS: 59025; 81001; 85025; 86900; 86901; 90715; 99285; J0690; J1130; J2274; J2405; J2590; J3010; J7030; J7120